=== PATIENT | male | born 1985 | race African-American/Black ===

== ENCOUNTER 2021-04-08 03:34 | Emergency (ER) | payer SELFPAY ==
[~2021-04-08] VITALS: Ht 190.5 cm; Wt 112.7 kg
[2021-04-08] MEDS ORDERED: IBUPROFEN 600MG TABLET PO NR (05:15)
[2021-04-08] MEDS ORDERED: CLONIDINE 0.1MG TABLET PO NR (05:15)
[2021-04-08] MEDS ORDERED: AMLO5TAB88 PO (06:50)
[2021-04-08] MEDS ORDERED: IBUP-2029 PO (06:50)
[2021-04-08] MEDS ORDERED: CYCL5TAB PO (06:50)
[2021-04-08 07:07] VITALS: BP 170/100
== END 2021-04-08 07:08 | disposition home or self-care (01) ==
LOC: ER 03:34
DX: S16.1XXA Strain of muscle, fascia and tendon at neck level, initial encounter (principal); M54.9 Dorsalgia, unspecified; I10 Essential (primary) hypertension; V49.49XA Driver injured in collision with other motor vehicles in traffic accident, initial encounter; Y93.89 Activity, other specified; Y92.89 Other specified places as the place of occurrence of the external cause; Y99.8 Other external cause status; Z90.49 Acquired absence of other specified parts of digestive tract; Z88.6 Allergy status to analgesic agent
CPT/HCPCS: 99283